=== PATIENT | female | born 1970 | race Caucasian/White ===

== ENCOUNTER 2021-08-09 07:51 | Day surgery (SDC) | payer BC ==
[~2021-08-09] VITALS: Ht 167.6 cm; Wt 53.5 kg
[~2021-08-09 07:51] MED LIST: CEVIMELINE HCL30 MG PO; DASETTA PO; FLEXERIL PO; LEXAPRO10 MG PO; SERTRALINE50 MG PO; ULTRAM50 M1 PO
[2021-08-09 09:03] VITALS: BP 123/84
== END 2021-08-09 09:10 | disposition home or self-care (01) | DRG 93 ==
LOC: ORM 07:51
PROVIDERS: ATTEND Physical Medicine & Rehabilitation
DX: G89.4 Chronic pain syndrome (principal); M53.3 Sacrococcygeal disorders, not elsewhere classified
CPT/HCPCS: Q9967